=== PATIENT | male | born 1975 | race Caucasian/White ===

== ENCOUNTER 2021-05-03 21:42 | Emergency (ER) | payer BC ==
[~2021-05-03 21:42] MED LIST: BACTRIM DS TAB1 EACH PO; BACTROBAN OINT22 GM TP; LEVAQUIN500 MG PO; LODINE CAP 300300 MG PO; PRILOSEC OTC20 MG PO
== END 2021-05-03 23:00 | disposition left against medical advice (07) ==
LOC: ER1 21:42
DX: Z53.21 Procedure and treatment not carried out due to patient leaving prior to being seen by health care provider (principal)